=== PATIENT | female | born 1985 | race Caucasian/White ===

== ENCOUNTER 2018-11-04 05:25 | Inpatient (IN) | payer OTHER ==
[2018-11-04] MEDS ORDERED: CITRIC ACID/NA CITRATE 30 ML CUP PO ×2 (06:00→06:30)
[2018-11-04] MEDS ORDERED: MISOPROSTOL 200 MCG TAB PR ×2 (06:00→08:00)
[2018-11-04] MEDS ORDERED: METHYLERGONOVINE 0.2 MG INJ IM (06:00)
[2018-11-04] MEDS ORDERED: CARBOPROST 250 MCG INJ IM (06:00)
[2018-11-04] MEDS ORDERED: OXYTOCIN 30 UNITS/LR 500 ML IV (06:00)
[2018-11-04 06:09] LABS: ADD MAN DIFF? NO
[2018-11-04] MEDS: LACTATED RINGER'S 1,000 ML IV ×4 (06:20→21:47)
[2018-11-04 06:25] LABS: WHITE BLOOD COUNT 10.6 10^3/ul (4.8-10.8)
[2018-11-04 06:25] LABS: BASOPHILS % 0.6 % (0.0-2.0); EOSINOPHILS % 1.2 % (0.0-7.0); HEMATOCRIT 37.9 % (37.0-47.0); HEMOGLOBIN 12.5 g/dl (12.0-16.0); LYMPHOCYTES % 28.4 % (15.0-51.0); MEAN CORPUSCULAR HEMOGLOBIN 28.2 pg (29.0-33.0); MEAN CORPUSCULAR VOLUME 85.4 fl (82.0-101.0); MEAN PLATELET VOLUME 11.2 fl (7.4-10.4); MONOCYTES % 6.4 % (0.0-11.0); NEUTROPHIL # 6.6 10^3/ul (1.6-7.5); NEUTROPHILS % 62.7 % (39.0-77.0); PLATELET COUNT 183 10^3/UL (140-415); RED BLOOD COUNT 4.44 10^6/ul (4.20-5.40); RED CELL DISTRIBUTION WIDTH 16.7 % (11.5-14.5)
[2018-11-04 06:26] LABS: BASOPHIL # 0.1 10^3/ul (0.0-0.1); EOSINOPHILS # 0.1 10^3/ul (0.0-0.5); MONOCYTE # 0.7 10^3/ul (0.3-0.9)
[2018-11-04 06:51] LABS: INR 0.89; PROTIME 12.2 Sec (11.9-14.9)
[2018-11-04 06:52] LABS: PARTIAL THROMBOPLASTIN TIME 25.7 Sec (23.0-35.0)
[2018-11-04 07:19] LABS: HEPATITIS B SURFACE ANTIGEN NEGATIVE (NEGATIVE)
[2018-11-04] MEDS ORDERED: ONDANSETRON 4 MG INJ (07:32)
[2018-11-04] MEDS ORDERED: CITRIC ACID/NA CITRATE 30 ML CUP (07:32)
[2018-11-04] MEDS: ONDANSETRON 4 MG INJ IV (07:38)
[2018-11-04] MEDS: CITRIC ACID/NA CITRATE 30 ML CUP PO (07:38)
[2018-11-04] MEDS ORDERED: morphine SULFATE/PF (10 MG/10 ML) INJ (07:48)
[2018-11-04] MEDS ORDERED: OXYTOCIN 10 UNIT INJ (07:48)
[2018-11-04] MEDS ORDERED: METOCLOPRAMIDE 10 MG INJ (07:48)
[2018-11-04] MEDS ORDERED: FENTAnyl 50 MCG/ML VIAL (07:48)
[2018-11-04] MEDS ORDERED: NA PHOSPHATE/BIPHOS 133 ML ENEMA PR (08:00)
[2018-11-04] MEDS ORDERED: KETOROLAC 30 MG INJ (08:32)
[2018-11-04] MEDS ORDERED: DEXAMETHASONE 4 MG/ML 1 ML INJ (08:35)
[2018-11-04] MEDS ORDERED: MIDAZOLAM 1 MG/ML 2 ML INJ (08:35)
[2018-11-04] MEDS: CEFAZOLIN 2 GM/50 ML (PMX) 50 ML IVPB ×2 (09:32→14:11)
[2018-11-04] MEDS ORDERED: ALBUTEROL 0.083% (NEB) 2.5 MG/3 ML AMP HHN (10:00)
[2018-11-04] MEDS ORDERED: hydrALAzine 20 MG INJ IV (10:00)
[2018-11-04] MEDS ORDERED: DIPHENHYDRAMINE 50 MG INJ IV ×2 (10:00)
[2018-11-04] MEDS ORDERED: NALBUPHINE HCL (10 MG/1 ML) INJ IV (10:00)
[2018-11-04] MEDS ORDERED: MIDAZOLAM 1 MG/ML 2 ML INJ IV (10:00)
[2018-11-04] MEDS ORDERED: EPHEDrine 25 MG/5 ML SYG IV (10:00)
[2018-11-04] MEDS ORDERED: HYDROmorphONE 1 MG/5 ML IV SYRINGE IV ×3 (10:00)
[2018-11-04] MEDS ORDERED: morphine 2 MG INJ IV ×2 (10:00)
[2018-11-04] MEDS ORDERED: LABETALOL HCL 20MG INJ IV (10:00)
[2018-11-04] MEDS ORDERED: IPRATROPIUM (NEB) 0.5 MG/2.5 ML AMP HHN (10:00)
[2018-11-04] MEDS ORDERED: FENTAnyl 50 MCG/ML VIAL IV ×2 (10:00)
[2018-11-04] MEDS ORDERED: ONDANSETRON 4 MG INJ IV ×2 (10:00)
[2018-11-04] MEDS ORDERED: NALOXONE (0.4 MG/ML) INJ IV (10:00)
[2018-11-04] MEDS ORDERED: MEPERIDINE 25 MG INJ IV (10:00)
[2018-11-04] MEDS ORDERED: TRIMETHOBENZAMIDE 100 MG/ML VIAL IM ×2 (10:00)
[2018-11-04] MEDS: FENTAnyl 50 MCG/ML VIAL IV (10:58)
[2018-11-04] MEDS: OXYTOCIN 30 UNITS/LR 500 ML IV (10:59)
[2018-11-04] MEDS: SENNA/DOCUSATE NA (8.6MG/50MG) TAB PO ×2 (11:50→20:51)
[2018-11-04] MEDS: IBUPROFEN 600 MG TAB PO ×2 (12:00→18:00)
[2018-11-04] MEDS: KETOROLAC 30 MG INJ IV (15:36)
[2018-11-04 20:21] LABS: RAPID PLASMA REAGIN NONREACTIVE (NR)
[2018-11-05] MEDS: KETOROLAC 30 MG INJ IV (04:10)
[2018-11-05] MEDS: LACTATED RINGER'S 1,000 ML IV (05:47)
[2018-11-05] MEDS: IBUPROFEN 600 MG TAB PO ×5 (06:00→23:39)
[2018-11-05 07:10] LABS: ADD MAN DIFF? NO
[2018-11-05 07:21] LABS: WHITE BLOOD COUNT 11.9 10^3/ul (4.8-10.8)
[2018-11-05 07:21] LABS: BASOPHILS % 0.3 % (0.0-2.0); EOSINOPHILS # 0.1 10^3/ul (0.0-0.5); EOSINOPHILS % 0.8 % (0.0-7.0); HEMATOCRIT 30.3 % (37.0-47.0); HEMOGLOBIN 9.9 g/dl (12.0-16.0); LYMPHOCYTES # 2.8 10^3/ul (0.8-2.9); LYMPHOCYTES % 23.4 % (15.0-51.0); MEAN CORPUSCULAR HEMOGLOBIN 28.6 pg (29.0-33.0); MEAN CORPUSCULAR HGB CONC 32.7 g/dl (32.0-37.0); MEAN CORPUSCULAR VOLUME 87.6 fl (82.0-101.0); MEAN PLATELET VOLUME 11.5 fl (7.4-10.4); MONOCYTE # 0.9 10^3/ul (0.3-0.9); MONOCYTES % 7.4 % (0.0-11.0); NEUTROPHILS % 67.3 % (39.0-77.0); PLATELET COUNT 177 10^3/UL (140-415); RED BLOOD COUNT 3.46 10^6/ul (4.20-5.40); RED CELL DISTRIBUTION WIDTH 16.1 % (11.5-14.5)
[2018-11-05] MEDS: SENNA/DOCUSATE NA (8.6MG/50MG) TAB PO ×2 (09:40→21:20)
[2018-11-05] MEDS: OXYCODONE/ACETAMINOPHEN (5/325) TAB PO (11:44)
[2018-11-06] MEDS: IBUPROFEN 600 MG TAB PO ×4 (05:33→23:26)
[2018-11-06] MEDS: SENNA/DOCUSATE NA (8.6MG/50MG) TAB PO ×2 (08:47→21:00)
[2018-11-06] MEDS: OXYCODONE/ACETAMINOPHEN (5/325) TAB PO ×2 (09:23→17:59)
[2018-11-06] MEDS: LANOLIN HPA 1 PKT TOP (17:58)
[2018-11-07] MEDS: OXYCODONE/ACETAMINOPHEN (5/325) TAB PO ×2 (03:40→10:51)
[2018-11-07] MEDS: IBUPROFEN 600 MG TAB PO ×2 (05:36→12:08)
[2018-11-07] MEDS: MEASLES,MUMPS,RUBELLA VACCINE INJ SC* (09:00)
[2018-11-07] MEDS: DIPHTH/TET/ACEL PERTUSS (ADULT) 0.5 ML VIAL IM* (09:00)
[2018-11-07] MEDS: SENNA/DOCUSATE NA (8.6MG/50MG) TAB PO (09:00)
== END 2018-11-07 12:40 | disposition home or self-care (01) | DRG 785 ==
LOC: L-D 05:25 → PP1 11:48
PROVIDERS: Specialist
PROC: 10D00Z1 Extraction of Products of Conception, Low, Open Approach (ICD-10-PCS; principal; 2018-11-04 07:30)
PROC: 0UT70ZZ Resection of Bilateral Fallopian Tubes, Open Approach (ICD-10-PCS; 2018-11-04 07:30)
PROC: 3E033VJ Introduction of Other Hormone into Peripheral Vein, Percutaneous Approach (ICD-10-PCS; 2018-11-04 07:30)
DX: O65.5 Obstructed labor due to abnormality of maternal pelvic organs (principal); O34.211 Maternal care for low transverse scar from previous cesarean delivery; Z3A.39 39 weeks gestation of pregnancy; Z37.0 Single live birth; Z30.2 Encounter for sterilization
CPT/HCPCS: 85025; 85610; 85730; 86592; 86850; 86900; 86901; 87340; 88302; 99464

== ENCOUNTER 2018-11-11 18:37 | Emergency (ER) | payer OTHER ==
[2018-11-11 20:19] LABS: ADD MAN DIFF? NO
[2018-11-11 20:24] LABS: WHITE BLOOD COUNT 10.4 10^3/ul (4.8-10.8)
[2018-11-11 20:24] LABS: BASOPHIL # 0.1 10^3/ul (0.0-0.1); BASOPHILS % 0.8 % (0.0-2.0); EOSINOPHILS # 0.2 10^3/ul (0.0-0.5); EOSINOPHILS % 2.3 % (0.0-7.0); HEMOGLOBIN 13.4 g/dl (12.0-16.0); LYMPHOCYTES # 3.3 10^3/ul (0.8-2.9); LYMPHOCYTES % 31.2 % (15.0-51.0); MEAN CORPUSCULAR HEMOGLOBIN 28.5 pg (29.0-33.0); MEAN CORPUSCULAR HGB CONC 32.7 g/dl (32.0-37.0); MONOCYTE # 0.6 10^3/ul (0.3-0.9); MONOCYTES % 5.6 % (0.0-11.0); NEUTROPHIL # 6.2 10^3/ul (1.6-7.5); NEUTROPHILS % 59.2 % (39.0-77.0); PLATELET COUNT 331 10^3/UL (140-415); RED BLOOD COUNT 4.71 10^6/ul (4.20-5.40); RED CELL DISTRIBUTION WIDTH 14.9 % (11.5-14.5)
[2018-11-11] MEDS: ONDANSETRON 4 MG INJ IV (20:32)
[2018-11-11] MEDS: SOD CHLORIDE 0.9% 1,000 ML IV (20:32)
[2018-11-11] MEDS: HYDROmorphONE 1 MG/ML SYG IV (20:32)
[2018-11-11 20:47] LABS: ANION GAP 13 (5-13); BLOOD UREA NITROGEN 14 mg/dl (7-20); CALCIUM 9.6 mg/dl (8.4-10.2); CARBON DIOXIDE 18 mmol/L (21-31); CHLORIDE 109 mmol/L (97-110); CREATININE 0.62 mg/dl (0.44-1.00); Estimated GFR > 60 mL/min (>60); GLUCOSE 89 mg/dl (70-220); POTASSIUM 4.3 mmol/L (3.5-5.1); SODIUM 140 mmol/L (135-144)
[2018-11-11] MEDS: IOHEXOL 300MG/ML 150 ML BTL (21:10)
[2018-11-11] MEDS: SOD CHLORIDE 0.9% 100 ML (21:11)
[2018-11-11] MEDS: MAGNESIUM CITRATE 300 ML BTL PO (22:23)
== END 2018-11-11 22:36 | disposition home or self-care (01) ==
LOC: E/R 18:37
DX: K59.00 Constipation, unspecified (principal)
CPT/HCPCS: 36415; 74177; 80048; 84702; 85025; 96374; 96375; 99285-25